=== PATIENT | female | born 1985 | race Caucasian/White ===

== ENCOUNTER 2016-11-07 08:57 | Outpatient (CLI) | payer OTHER ==
[~2016-11-07 08:57] MED LIST: IBUPROFEN200 M1 PO; MELOXICAM7.5 MG PO; OMEPRAZOLE20 MG; ONDANSETRON ODT4 MG PO; PERCOCET1 TA4 PO
--- NOTE | 2016-11-07 11:34 | DIAGNOSTIC IMAGING REPORT ---
PROCEDURE: MR LOWER EXT JOINT WO CONT-LT INDICATION: LT KNEE MASS, POSS LIPOMA OR BURSA, the patient complains of posterior knee pain and swelling following activity. TECHNIQUE: PD axial, T1 and PD fat sat coronal, PD and PD fat sat sagittal, and sagittal oblique STIR sequence through the ACL. COMPARISON: Plain films 10/25/2016 FINDINGS: Menisci: Intrinsic increased signal within the posterior horn of the medial meniscus which appears intact. Intrinsic increased signal in the body of the lateral meniscus without tear. No parameniscal cysts. Ligaments: Anterior and posterior cruciate ligaments are intact. Medial and lateral collateral ligament complexes including posterolateral corner structures are normal. Extensor mechanism: Normal patellar position. Intact retinacular fibers, distal quadriceps, and patellar tendons. Osseous structures and articular surfaces: Normal joint alignment. Mild diffuse uniform cartilage thinning in the medial and lateral compartments. Slight chondral irregularity in the medial and lateral patellar facet this. No full-thickness cartilage defect. Normal marrow signal. Fluid, soft tissues, and joint space: Physiologic amount of joint fluid present. There is a trace amount of unencapsulated fluid in the popliteal fossa at the expected location of a Newman's cyst. There is mild increased signal within and surrounding the proximal tendon of the gastrocnemius muscle. Semimembranosus tendon is intact with normal signal. In the region of the biceps femoris tendon on the lateral knee, there is no evidence of cyst or suspicious solid mass. No significant tendinopathy. The musculature and subcutaneous tissues normal in signal. Neurovascular bundle is unremarkable. IMPRESSION: 1. Trace fluid in the popliteal fossa may indicate a decompressed Newman's cyst. 2. Tendinopathy/strain of the medial head of the gastrocnemius muscle without full-thickness tear. 3. Mild degenerative intrinsic signal within the medial and lateral menisci. No tear. 4. Mild chondromalacia of the patella. 5. No evidence of lateral joint bursal fluid collection or mass.
== END 2016-11-07 23:00 ==
LOC: MRI SRH 08:57
DX: S86.812A Strain of other muscle(s) and tendon(s) at lower leg level, left leg, initial encounter (principal); M22.42 Chondromalacia patellae, left knee

== ENCOUNTER 2016-11-25 07:31 | Emergency (ER) | payer OTHER ==
--- NOTE | 2016-11-25 09:02 | ED ORDER SUMMARY ---
..... Patient: ALFREDO URBANO OrderSheet [facility] VisitID: [id number] [place] [address] 31y, F Registration Date/Time: 11/25/2016 ORDER SHEET Weight: 80.2 kg (stated) Allergies: No Known Drug Allergy GENERAL ORDERS: UA-Culture if indicated Urgent (08:11/25/2016 Yisel Asencio) (Ack 8:51 Franky) (8:54 Akiko R.N.) Urine Urgent (:11/25/2016 Yisel Asencio) (Ack 8:51 Franky) (8:54 Akiko R.N.) MEDICATION ORDERS: IV FLUIDS: ORDER SHEET NOTES: [Electronically signed by Jessenia Amezcua R.N. (09:11/25/2016)] [Electronically signed by Isaias London Dr. (08:43 12/03/2016)] [Electronically locked/signed by Jessenia Amezcua R.N. (:11/25/2016)]
--- NOTE | 2016-11-25 09:02 | ED NURSING NOTES ---
Clinical Report - Nurses [facility] [address] [place] [address] 11/25/2016 7:32 [id number] Triage time 08:07. Acuity: LEVEL 4. Chief Complaint: FATIGUE, NASAL CONGESTION, COUGH and JOINT PAIN ("burning" eyes, nose, can't sleep). Alert. No acute distress. BILL COMA SCORE: Marshall Coma Scale: 15- eyes open spontaneously (4); best verbal response- oriented x 4 (5); best motor response- obeys commands (6). --08:14 Jessenia Amezcua R.N. 08:07 11/25/16. BP: 139/95. HR: 81. RR: 18. O2 saturation: 99% on room air. Temp: 98.1 F (oral). Pain level now: 11/18. --08:14 Jessenia Amezcua R.N. Weight: 80.2 kg stated. Height/Length: 61 inches Per Patient. BMI: 33.4. --08:10 Jessenia Amezcua R.N. Medications Alb inhaler. --08:08 Jessenia Amezcua R.N. Naproxen Oral. --08:08 Jessenia Amezcua R.N. Allergies No Known Drug Allergy. --08:08 Jessenia Amezcua R.N. History Arrived by private vehicle. Historian: patient. Unaccompanied. Primary physician (Tatyana). Onset. (about 5 days). She has had a cough. PAST MEDICAL HX: Last normal menstrual period- November 2016. SOCIAL HX: Heavy tobacco smoker- less than 1 pack per day. Occasional alcohol use. No drug use. FALL RISK ASSESSMENT: Fall risk assessment completed. No fall risk identified. FUNCTIONAL ASSESSMENT: Functional assessment: no impairments noted. LEARNING NEEDS ASSESSMENT: The learning needs assessment revealed no barriers. --08:14 Jessenia Amezcua R.N. PROBLEMS: Lumbar Strain. Acute Otalgia. Leukocytosis. Colitis. Nausea. Gastroesophageal Reflux Disease. Fractured Metatarsal. Muscle Strain, Lower Extremity. Myofascial Strain. Laryngitis. Pharyngitis. Abdominal Pain. Dyspnea. Bronchospasm. Dental Caries. Tetanus Status. Reflux of the kidneys. URI. Bronchitis. Nephrolithiasis. Immunizations. LNMP - Last Normal Menstrual Period. Lifestyle / Substance Problems. Palpitations. Sinus Tachycardia. Abnormal Test. --08:09 Jessenia Amezcua R.N. ADDITIONAL SURGERIES: Foot surgery [2015]. Kidney surgery. Tonsillectomy. --08:09 Jessenia Amezcua R.N. Assessment GENERAL / NEURO / PSYCH: Alert. Oriented X 4. Appears in no acute distress. Patient appears calm and cooperative. RESPIRATORY: Respirations not labored. SKIN: Skin is warm and dry. --08:14 Jessenia Amezcua R.N. Interventions ID band on patient. To treatment room. --08:14 Jessenia Amezcua R.N. PHYSICAL ASSESSMENT 08:16 11/25/16. Ambulatory to room. Patient gowned. GENERAL / NEURO / PSYCH: Alert. Oriented X 4. Appears in no acute distress. RESPIRATORY: Respirations not labored. SKIN: Skin is warm and dry. --08:16 Jessenia Amezcua R.N. NURSING PROGRESS NOTES 08:16 11/25/16. Patient gowned. Head of bed elevated. Call light placed in reach. Side rails up x 1. Bed placed in lowest position. Brakes of bed on. --08:16 Jessenia Amezcua R.N. 08:55b to BR and back. --08:55 Jessenia Amezcua R.N. 08:55 11/25/16. :patient confirmed. Clean catch urine collected; sample sent to lab. Specimen labeled in the presence of the patient. --08:55 Jessenia Amezcua R.N. 09:20. The patient is resting quietly. Overall patient status is the same- she states feels the same. RESPIRATORY: No respiratory distress. SKIN: Skin is warm and dry. --09:26 Jessenia Amezcua R.N. DISPOSITION / DISCHARGE Departure time: 919. Condition at departure: stable. No learning barriers present. Discharge instructions provided and reviewed with the patient. Reviewed medication(s). Prescription(s) given to the patient. Patient verbalized understanding. Written instructions provided in Faroese. The patient was discharged home and unaccompanied at time of discharge. She left the Emergency Department ambulatory and via private vehicle. Patient driving. FALL RISK ASSESSMENT: Fall risk assessment completed. No fall risk identified. --09:27 Jessenia Amezcua R.N. 09:20 11/25/16. BP: 134/82. HR: 79. RR: 18. O2 saturation: 98%. Pain level now: 12/19. --09:27 Jessenia Amezcua R.N. Locked/Released at 11/25/2016 9:27 by Jessenia Amezcua R.N.
--- NOTE | 2016-11-25 09:02 | ED ORDER SUMMARY ---
..... Patient: ALFREDO URBANO OrderSheet [facility] VisitID: [id number] [place] [address] 31y, F Registration Date/Time: 11/25/2016 ORDER SHEET Weight: 80.2 kg (stated) Allergies: No Known Drug Allergy GENERAL ORDERS: UA-Culture if indicated Urgent (08:11/25/2016 Yisel Asencio) (Ack 8:51 Franky) (8:54 Akiko R.N.) Urine Urgent (:11/25/2016 Yisel Asencio) (Ack 8:51 Franky) (8:54 Akiko R.N.) MEDICATION ORDERS: IV FLUIDS: ORDER SHEET NOTES: [Electronically signed by Jessenia Amezcua R.N. (09:11/25/2016)] [Electronically signed by Isaias London Dr. (08:43 12/03/2016)] [Electronically locked/signed by Jessenia Amezcua R.N. (:11/25/2016)]
--- NOTE | 2016-11-25 09:02 | ED CLINICAL REPORT ---
Clinical Report - Physicians/Mid Levels [facility] [address] [place] [address] 11/25/2016 7:32 Patient: ALFREDO URBANO Time Seen: 0815. Arrived- By private vehicle. Historian- patient. HISTORY OF PRESENT ILLNESS Chief Complaint: MUSCLE ACHES. This started past several days and is still present (staying the same). It was abrupt in onset and has been constant and waxing/waning but is not gone now. The illness is described as moderate. The patient has had sputum production, a cough, nasal congestion, fever and chills. She has had muscle aches and a nasal discharge. No sore throat. Additional history - No known contact with a sick individual. No recent travel. Similar symptoms previously: None. Recent medical care: Not recently seen/assessed. REVIEW OF SYSTEMS No skin rash. All systems otherwise negative, except as recorded above. PAST HISTORY See nurses notes. Medications: Naproxen Oral. Alb inhaler. Allergies: No Known Drug Allergy. SOCIAL HISTORY Smoker- current status unknown. Alcohol use. No drug use. No recent travel. Is a local resident. ADDITIONAL NOTES The nursing notes have been reviewed. PHYSICAL EXAM Vital Signs: 11/25/2016 08:07 BP: 139/95. HR: 81. RR: 18. O2 saturation: 99%. Temp: 98.1 F. Pain level now: 3/10. Oxygen saturation normal. Appearance: Alert. No acute distress. Head: Tenderness present to percussion/palpation of the sinuses: moderate right and left ethmoid tenderness. Eyes: Pupils equal, round and reactive to light. Eyes normal inspection. No conjunctival findings. ENT: Ears normal. Nose normal. Pharynx normal. Uvula midline. No peritonsillar mass, trismus or trouble handling secretions. The mucous membranes are not dry. Neck: Normal inspection. Neck supple. No meningeal signs. CVS: Normal heart rate and rhythm. Heart sounds normal. Pulses normal. Respiratory: No respiratory distress. Breath sounds normal. No rales, rhonchi, wheezes or stridor. Abdomen: Soft and nontender. No organomegaly. Skin: Skin warm and dry. Normal skin color. No rash. Normal skin turgor. Extremities: Extremities exhibit normal ROM. No lower extremity edema. Neuro: Disoriented. Motor deficit noted. LABS, X-RAYS, AND EKG Laboratory Tests: UA-Culture if indicated: (CINDY: 11/25/2016 08:45) ( [facility] 11/25/2016 09:35) Final results Test Result Flag Units (Reference) URINE COLOR YELLOW URINE APPEARANCE SL CLOUDY URINE GLUCOSE NEGATIVE (NEGATIVE) URINE BILIRUBIN NEGATIVE (NEGATIVE) URINE KETONE NEGATIVE (NEGATIVE) URINE SPECIFIC GRAVITY >= 1.030 (1.010-1.030) URINE PH 6.5 (5.0-8.0) URINE PROTEIN TRACE (NEGATIVE) URINE UROBILINOGEN 1.0 EU/dL (0.2-1.0) URINE NITRITE NEGATIVE (NEGATIVE) URINE BLOOD NEGATIVE (NEGATIVE) URINE LEUK ESTERASE NEGATIVE (NEGATIVE) URINE RBC NONE SEEN rbc/hpf (0-1) URINE WBC 3-5 wbc/hpf (0-1) URINE EPITHELIAL CELLS >15 EPI/hpf (0-5) URINE BACTERIA MODERATE (2+ TO 3+) (NONE SEEN) 2+ URINE COMMENT CULTURE INDICATED EPITHELIAL CONTAMINATION. NO CULTURE SETUP.Please call laboratory if culture wanted.URINE CULTURES ARE SET-UP BASED ON THE FOLLOWING CRITERIA:POSITIVE NITRITEPOSITIVE LEUKOCYTE ESTERASEGREATER THAN 10 WHITE BLOOD CELLSMODERATE (2+) OR GREATER BACTERIA Urine: (CINDY: 11/25/2016 08:45) ( [facility] 11/25/2016 09:09) Final results Test Result Flag Units (Reference) URINE NEGATIVE . PROGRESS AND PROCEDURES Course of Care: The patient is a pleasant 31-year-old female with no pertinent past medical history presenting for evaluation of generalized fatigue and what he experienced at this time differential diagnosis includes urinary tract infection, or sinusitis/viral type infection. Because the patient's symptoms have been ongoing for almost a week, and patient is having ethmoid sinus tenderness, Feel the benefits of antibiotic therapy outweigh the risks at this time. Urinalysis will be ordered. Patient is agreeable to the treatment and plan. Offers of pain medication at the provided however patient is currently declining at this time are a result of a urinary tract infection. Feel the abnormal findings on UA her contamination. Patient will be treated with antibiotics for the sinus infection. I discussion with patient in regards to the normal course of treating sinus infections however because the time course, patient would likely benefit from a course of antibiotics. No other findings noted on patient's examination. No evidence of meningitis. Do not feel further workup here in emergency department as needed. Lungs are clear to examination do not feel patient benefit from chest x-ray. Discussed the patient workup, diagnosis, home care, follow-up, and return precautions. All questions have been answered. The patient expressed understanding of these instructions and was agreeable to them. Prior to patient's departure from the emergency department she was reevaluated and found resting in bed in no acute distress. Vital signs are remaining unremarkable. Patient is a good outpatient candidate. Disposition: Discharged. Condition: good. CLINICAL IMPRESSION 11/25/2016 08:07 BP: 139/95. HR: 81. RR: 18. O2 saturation: 99%. Temp: 98.1 F. Pain level now: 3/10. Hypertensive. Oxygen saturation normal. Ethmoidal sinusitis (acute). Essential hypertension. INSTRUCTIONS Warnings: GENERAL WARNINGS: Return or contact your physician immediately if your condition worsens or changes unexpectedly, if not improving as expected, or if other problems arise. Specifically return if pain, vomiting, bleeding, breathing difficulty or fever. Your Current Medications: CONTINUE TAKING THE FOLLOWING MEDICATIONS: Alb inhaler*. Naproxen Oral. Prescription Medications: Azithromycin Z-Rafi: Take according to package instructions. No refills. (substitution allowed) Hydroxyzine 50 mg: take 1 orally every 8 hours. Dispense thirty (30). No refill. (PRN congestion or sinus pressure) OTC Medications: Claritin 10 mg (available over the counter): take 1 tablet orally every 12 hours as needed. (PRN congestion or sinus pressure) Follow-up: Return to the emergency department as needed. Follow up with your doctor in three days. Reason for referral: recheck today's concerns. Summary of care provided to patient via paper. Screening today revealed the patient's blood pressure to be in the hypertensive range. The patient should follow up with a primary care provider for blood pressure management. Understanding of the discharge instructions not verbalized by patient. (Electronically signed by Isaias London Dr. 12/03/2016 8:43)
--- NOTE | 2016-12-03 08:43 | ED MED RECONCILIATION SUMMARY ---
Patient: ALFREDO URBANO Medication Reconciliation Report [facility] VisitID: [id number] [place] [address] 31y, F Registration Date/Time: 11/25/2016 Weight: 80.2 kg Height/Length: 61 in. BMI: 33.4 ALLERGIES: No Known Drug Allergy The patient's Home Medications are listed below: CONTINUE TAKING THE FOLLOWING MEDICATIONS: Alb inhaler Naproxen Oral The source(s) of the original Home Medication information: Not obtained. The following Medications were given to the patient in the Emergency Department: None. The following Medications were prescribed to the patient: Azithromycin Z-Rafi: Take according to package instructions. No refills.(substitution allowed) -- Isaias London Dr. Claritin 10 mg (available over the counter): take 1 tablet orally every 12 hours as needed.(PRN congestion or sinus pressure) -- Isaias London Dr. Hydroxyzine 50 mg: take 1 orally every 8 hours. Dispense thirty (30). No refill.(PRN congestion or sinus pressure) -- Isaias London Dr.
--- NOTE | 2016-12-03 08:43 | ED MED RECONCILIATION SUMMARY ---
Patient: ALFREDO URBANO Medication Reconciliation Report [facility] VisitID: [id number] [place] [address] 31y, F Registration Date/Time: 11/25/2016 Weight: 80.2 kg Height/Length: 61 in. BMI: 33.4 ALLERGIES: No Known Drug Allergy The patient's Home Medications are listed below: CONTINUE TAKING THE FOLLOWING MEDICATIONS: Alb inhaler Naproxen Oral The source(s) of the original Home Medication information: Not obtained. The following Medications were given to the patient in the Emergency Department: None. The following Medications were prescribed to the patient: Azithromycin Z-Rafi: Take according to package instructions. No refills.(substitution allowed) -- Isaias London Dr. Claritin 10 mg (available over the counter): take 1 tablet orally every 12 hours as needed.(PRN congestion or sinus pressure) -- Isaias London Dr. Hydroxyzine 50 mg: take 1 orally every 8 hours. Dispense thirty (30). No refill.(PRN congestion or sinus pressure) -- Isaias London Dr.
--- NOTE | 2016-12-03 08:43 | ED DISCHARGE INSTRUCTIONS ---
Patient: ALFREDO URBANO General Instructions [facility] VisitID: [id number] [place] [address] 31y, F Registration Date/Time: 11/25/2016 11/25/2016 08:07 BP: 139/95. HR: 81. RR: 18. O2 saturation: 99%. Temp: 98.1 F. Pain level now: 11/18. Hypertensive. Oxygen saturation normal. Ethmoidal sinusitis (acute). Essential hypertension. INSTRUCTIONS Warnings: GENERAL WARNINGS: Return or contact your physician immediately if your condition worsens or changes unexpectedly, if not improving as expected, or if other problems arise. Specifically return if pain, vomiting, bleeding, breathing difficulty or fever. Your Current Medications: CONTINUE TAKING THE FOLLOWING MEDICATIONS: Alb inhaler*. Naproxen Oral. Prescription Medications: Azithromycin Z-Rafi: Take according to package instructions. No refills. (substitution allowed) Hydroxyzine 50 mg: take 1 orally every 8 hours. Dispense thirty (30). No refill. (PRN congestion or sinus pressure) OTC Medications: Claritin 10 mg (available over the counter): take 1 tablet orally every 12 hours as needed. (PRN congestion or sinus pressure) Follow-up: Return to the emergency department as needed. Follow up with your doctor in three days. Reason for referral: recheck today's concerns. Summary of care provided to patient via paper. Screening today revealed the patient's blood pressure to be in the hypertensive range. The patient should follow up with a primary care provider for blood pressure management. Understanding of the discharge instructions not verbalized by patient. ADDITIONAL INFORMATION Sinusitis [Abx Tx] The sinuses are air-filled spaces within the bones of the face. They connect to the inside of the nose. Sinusitis is an inflammation of the tissue lining the sinus cavity. Sinus inflammation can occur during a cold or hay-fever (allergies to pollens and other particles in the air) and cause symptoms of sinus congestion and fullness. A sinus infection causes fever, headache and facial pain. There is usually green or yellow drainage from the nose or into the back of the throat (post-nasal drip). Antibiotics are prescribed to treat this condition. Home Care: Drink plenty of water, hot tea, and other liquids to stay well hydrated. This thins the mucus and promotes sinus drainage. Apply heat to the painful areas of the face. Use a towel soaked in hot water. Or, business transformation consultant the shower and direct the hot spray onto your face. This is a good way to inhale warm water vapor and get heat on your face at the same time. (Cover your mouth and nose with your hands so you can still breathe as you do this.) Use a vaporizer with products such as [employer] VapoRub (contains menthol) at night. Suck on peppermint, menthol or eucalyptus hard candies during the day. An expectorant containing guaifenesin (such as Robitussin), helps to thin the mucus and promote drainage from the sinuses. Clse-ltq-gnguyes decongestants may be used unless a similar medicine was prescribed. Nasal sprays work the fastest. Use one that contains phenylephrine (Joaquín-synephrine, Sinex and others) or oxymetazoline (Afrin). First blow the nose gently to remove mucus, then apply the drops. Do not use these medicines more often than directed on the label or for more than three days or symptoms may worsen. You may also use tablets containing pseudoephedrine (Sudafed). Many sinus remedies combine ingredients, which may increase side effects. Read the labels or ask the pharmacist for help. NOTE: Persons with high blood pressure should not use decongestants. They can raise blood pressure. Antihistamines are useful if allergies are a cause of your sinusitis. The mildest one is chlorpheniramine (available without a prescription). The dose for adults is 8-12mg three times a day. [NOTE: Do not use chlorpheniramine if you have glaucoma or if you are a man with trouble urinating due to an enlarged prostate.] Claritin (loratidine) is an antihistamine that causes less drowsiness and is a good alternative for daytime use. Do not use nasal rinses or irrigation during an acute sinus infection, unless advised by your doctor. Rinsing may spread the infection to other sinuses. You may use acetaminophen (Tylenol) or ibuprofen (Motrin, Advil) to control pain, unless another pain medicine was prescribed. [ NOTE: If you have chronic liver or kidney disease or ever had a stomach ulcer, talk with your doctor before using these medicines.] (Aspirin should never be used in anyone under 18 years of age who is ill with a fever. It may cause severe liver damage.) Finish the full course, even if you are feeling better after a few days. Follow Up with your doctor or this facility in one week or as instructed by our staff if not improving. Get Prompt Medical Attention if any of the following occur: Facial pain or headache becomes more severe Stiff neck Unusual drowsiness or confusion, or not acting like your normal self Swelling of the forehead or eyelids Vision problems including blurred or double vision Fever of 100.4F (38C) or higher, or as directed by your healthcare provider Seizure High Blood Pressure -- To Be Confirmed [No Tx] Your blood pressure was higher today than normal. Sometimes anxiety or pain can cause a temporary rise in blood pressure that later returns to normal. If your blood pressure is high on one measurement, this does not mean that you have hypertension (a chronic illness). However, you must have your blood pressure measured again within the next few days to find out if its still high. A normal blood pressure is 120/80 or less. The first (top) number is the "systolic" pressure. The second (bottom) number is the "diastolic" pressure. Hypertension exists when either the top number is 140 or higher, OR the bottom number is 90 or higher on repeated measurements. Blood pressure in the range of 120-140 (systolic) or 80-89 (diastolic) is considered "pre-hypertension". This means your are at risk for getting hypertension. You should have regular blood pressure checks to be sure your blood pressure is not rising. Home Care: Measure your blood pressure on 3 different days and write down the results. This can be done at your doctor's office or this facility. Some pharmacies and grocery stores offer automated blood pressure machines for your use. Follow Up: If your blood pressure is "high" (over 120/80) on 2 out of 3 days, you will need to follow up with your doctor for further evaluation and treatment. DO NOT PUT THIS OFF! Untreated high blood pressure increases the risk for heart attack, also known as acute myocardial infarction, or AMI, and stroke. It is a treatable condition. Get Prompt Medical Attention if any of the following occur: Chest pain or shortness of breath Severe headache Throbbing or rushing sound in the ears Nosebleed Sudden severe abdominal pain Extreme drowsiness, confusion or fainting Dizziness or vertigo (dizziness with spinning sensation) Weakness of an arm or leg or one side of the face Difficulty with speech or vision Azithromycin Oral tablet What is this medicine? AZITHROMYCIN (mony burns) is a macrolide antibiotic. It is used to treat or prevent certain kinds of bacterial infections. It will not work for colds, flu, or other viral infections. How should I use this medicine? Take this medicine by mouth with a full glass of water. Follow the directions on the prescription label. The tablets can be taken with food or on an empty stomach. If the medicine upsets your stomach, take it with food. Take your medicine at regular intervals. Do not take your medicine more often than directed. Take all of your medicine as directed even if you think your are better. Do not skip doses or stop your medicine early. Talk to your commercial front load operator regarding the use of this medicine in children. Special care may be needed. What side effects may I notice from receiving this medicine? Side effects that you should report to your doctor or health home care coordinator as soon as possible: allergic reactions like skin rash, itching or hives, swelling of the face, lips, or tongue confusion, nightmares or hallucinations dark urine difficulty breathing hearing loss irregular heartbeat or chest pain pain or difficulty passing urine redness, blistering, peeling or loosening of the skin, including inside the mouth white patches or sores in the mouth yellowing of the eyes or skin Side effects that usually do not require medical attention (report to your doctor or health home care coordinator if they continue or are bothersome): diarrhea dizziness, drowsiness headache stomach upset or vomiting tooth discoloration vaginal irritation What may interact with this medicine? Do not take this medicine with any of the following medications: lincomycin This medicine may also interact with the following medications: amiodarone antacids cyclosporine digoxin magnesium nelfinavir phenytoin warfarin What if I miss a dose? If you miss a dose, take it as soon as you can. If it is almost time for your next dose, take only that dose. Do not take double or extra doses. Where should I keep my medicine? Keep out of the reach of children. Store at room temperature between 15 and 30 degrees C (59 and 86 degrees F). Throw away any unused medicine after the expiration date. What should I tell my health care provider before I take this medicine? They need to know if you have any of these conditions: kidney disease liver disease irregular heartbeat or heart disease an unusual or allergic reaction to azithromycin, erythromycin, other macrolide antibiotics, foods, dyes, or preservatives or trying to get breast-feeding What should I watch for while using this medicine? Tell your doctor or health home care coordinator if your symptoms do not improve. Do not treat diarrhea with over the counter products. Contact your doctor if you have diarrhea that lasts more than 2 days or if it is severe and watery. This medicine can make you more sensitive to the sun. Keep out of the sun. If you cannot avoid being in the sun, wear protective clothing and use sunscreen. Do not use sun lamps or tanning beds/booths. Hydroxyzine Pamoate Oral capsule What is this medicine? HYDROXYZINE (amarilis DROX i zeen) is an antihistamine. This medicine is used to treat allergy symptoms. It is also used to treat anxiety and tension. This medicine can be used with other medicines to induce sleep before surgery. How should I use this medicine? Take this medicine by mouth with a full glass of water. Follow the directions on the prescription label. You may take this medicine with food or on an empty stomach. Take your medicine at regular intervals. Do not take your medicine more often than directed. Talk to your commercial front load operator regarding the use of this medicine in children. Special care may be needed. While this drug may be prescribed for children as young as 6 years of age for selected conditions, precautions do apply. Patients over 65 years old may have a stronger reaction and need a smaller dose. What side effects may I notice from receiving this medicine? Side effects that you should report to your doctor or health home care coordinator as soon as possible: fast or irregular heartbeat difficulty passing urine seizures slurred speech or confusion tremor Side effects that usually do not require medical attention (report to your doctor or health home care coordinator if they continue or are bothersome): constipation drowsiness fatigue headache stomach upset What may interact with this medicine? alcohol barbiturate medicines for sleep or seizures medicines for colds, allergies medicines for depression, anxiety, or emotional disturbances medicines for pain medicines for sleep muscle relaxants What if I miss a dose? If you miss a dose, take it as soon as you can. If it is almost time for your next dose, take only that dose. Do not take double or extra doses. Where should I keep my medicine? Keep out of the reach of children. Store at room temperature between 15 and 30 degrees C (59 and 86 degrees F). Keep container tightly closed. Throw away any unused medicine after the expiration date. What should I tell my health care provider before I take this medicine? They need to know if you have any of these conditions: any chronic illness difficulty passing urine glaucoma heart disease kidney disease liver disease lung disease an unusual or allergic reaction to hydroxyzine, cetirizine, other medicines, foods, dyes, or preservatives or trying to get breast-feeding What should I watch for while using this medicine? Tell your doctor or health home care coordinator if your symptoms do not improve. You may get drowsy or dizzy. Do not drive, use machinery, or do anything that needs mental alertness until you know how this medicine affects you. Do not stand or sit up quickly, especially if you are an older patient. This reduces the risk of dizzy or fainting spells. Alcohol may interfere with the effect of this medicine. Avoid alcoholic drinks. Your mouth may get dry. Chewing sugarless gum or sucking hard candy, and drinking plenty of water may help. Contact your doctor if the problem does not go away or is severe. This medicine may cause dry eyes and blurred vision. If you wear contact lenses you may feel some discomfort. Lubricating drops may help. See your eye doctor if the problem does not go away or is severe. If you are receiving skin tests for allergies, tell your doctor you are using this medicine. You have been given the following additional information: Sinusitis, Abx Tx Hypertension, To Be Confirmed Azithromycin Oral tablet Hydroxyzine Pamoate Oral capsule (Electronically signed by Isaias London Dr. 12/03/2016 8:43)
--- NOTE | 2016-12-03 08:43 | ED MAR SUMMARY ---
..... Medication Administration Record [facility] [address] [place] [address] Patient: ALFREDO URBANO Visit ID: [id number] 31y, F Weight: 80.2 kg Height/Length: 61 in BMI: 33.4 ALLERGIES: No Known Drug Allergy
--- NOTE | 2016-12-03 08:43 | ED MAR SUMMARY ---
..... Medication Administration Record [facility] [address] [place] [address] Patient: ALFREDO URBANO Visit ID: [id number] 31y, F Weight: 80.2 kg Height/Length: 61 in BMI: 33.4 ALLERGIES: No Known Drug Allergy
== END 2016-11-25 09:20 | disposition home or self-care (01) ==
LOC: ED SRH 07:31
DX: J01.20 Acute ethmoidal sinusitis, unspecified (principal); I10 Essential (primary) hypertension; K21.9 Gastro-esophageal reflux disease without esophagitis
CPT/HCPCS: 90004; 93070

== ENCOUNTER 2017-02-18 08:42 | Emergency (ER) | payer OTHER ==
--- NOTE | 2017-02-18 09:29 | DIAGNOSTIC IMAGING REPORT ---
PROCEDURE: XR FOOT 3 VIEWS - LEFT INDICATION: Left foot and toe pain. TECHNIQUE: Three views. COMPARISON: Compare radiographs of the left foot on 01/16/2015. FINDINGS: Status post open reduction internal fixation of right fifth metatarsal shaft fracture transfixed with a solitary screw. The rest of the osseous structures and joint spaces are normal. IMPRESSION: 1. Status post ORIF of right fifth metatarsal shaft fracture. 2. Otherwise negative right foot.
--- NOTE | 2017-02-18 09:45 | ED NURSING NOTES ---
Clinical Report - Nurses [facility] [address] [place] [address] 02/18/2017 8:42 Patient: ALFREDO URBANO TRIAGE Triage time 08:58 Burak 10 2016. Acuity: LEVEL 4. Chief Complaint: INJURY TO LEFT FOOT. CARLOS COMA SCORE: Carlos Coma Scale: 15- eyes open spontaneously (4); best verbal response- oriented x 4 (5); best motor response- obeys commands (6). --09:02 Sohan Walden R.N. 08:57 02/18/17. Pain level now 04/20. --09:02 Sohan Walden R.N. 09:04 02/18/17. BP: 134/86. HR: 95. RR: 18. O2 saturation: 98%. Temp: 98.3 F. Pain level now 03/20. --09:04 Sohan Walden R.N. Weight: 78 kg stated. Height/Length: 61 inches Per Patient. BMI: 32.5. --09:02 Sohan Walden R.N. Medications Alb inhaler. Naproxen Oral. --09:00 Sohan Walden R.N. Allergies No Known Drug Allergy. --09:00 Sohan Walden R.N. History Arrived by private vehicle. This occurred (1 weeks). ( History of surgery in that foot there is a screw in the toe next to the pain that she is having. Is having swelling on the bottom of the foot and the toe next tot the small toes.). She has had trouble walking. The patient has been limping when trying to walk. ( Throbbing pain). No numbness, tingling, weakness, neck pain or back pain. Treatment DIRECTOR OF RECRUITMENT: (naproxen). PAST MEDICAL HX: Lung disease. No history of diabetes mellitus, hypertension or heart disease. Tetanus status: up-to-date. Immunizations: up-to-date. SOCIAL HX: Current every day heavy tobacco smoker (cigarette)- less than 1 pack per day. Occasional alcohol use. No drug use. SELF HARM ASSESSMENT: A self harm assessment was performed. The patient answered "no" to the question "Have you recently felt down, depressed, or hopeless?" and "Do you have thoughts of harming or killing yourself?". FALL RISK ASSESSMENT: Fall risk assessment completed. No fall risk identified. NUTRITIONAL RISK ASSESSMENT: The nutritional risk assessment revealed no deficiencies. FUNCTIONAL ASSESSMENT: Functional assessment: no impairments noted. LEARNING NEEDS ASSESSMENT: The learning needs assessment revealed no barriers. ABUSE ASSESSMENT: Abuse assessment: (yes) The patient was asked "Do you feel safe in your home?". SKIN INTEGRITY ASSESSMENT: Skin integrity risk assessment completed. No skin integrity risk identified. --09:02 Sohan Walden R.N. PROBLEMS: Hypertension. Sinusitis. Lumbar Strain. Acute Otalgia. Leukocytosis. Colitis. Nausea. Gastroesophageal Reflux Disease. Fractured Metatarsal. Muscle Strain, Lower Extremity. Myofascial Strain. Laryngitis. Pharyngitis. Abdominal Pain. Dyspnea. Bronchospasm. Dental Caries. Tetanus Status. Reflux of the kidneys. URI. Bronchitis. Nephrolithiasis. Immunizations. LNMP - Last Normal Menstrual Period. Lifestyle / Substance Problems. Palpitations. Sinus Tachycardia. Abnormal Test. --09:01 Sohan Walden R.N. ADDITIONAL SURGERIES: Foot surgery [2015]. Kidney surgery. Tonsillectomy. --09:01 Sohan Walden R.N. Interventions ID band on patient. --09:02 Sohan Walden R.N. PHYSICAL ASSESSMENT Ambulatory to room. GENERAL / NEURO / PSYCH: Oriented X 4. Alert. Appears in no acute distress. EXTREMITIES: Capillary refill is less than 2 seconds in the extremities. Extremity pulses are within normal limits. Extremities exhibit normal ROM. Pain with weight bearing. Limping gait. Neuro-vascular status intact to the extremity. Left foot: tenderness of the fourth toe. SKIN: Skin intact. Skin is warm and dry. ( old scaring on skin). --09:05 Sohan Walden R.N. NURSING PROGRESS NOTES The initial plan of care for this patient includes an assessment with efforts to address patient positioning and appropriate ambient lighting; impairment of the musculoskeletal system. Cold pack applied. Extremity elevated. Reassurance given. Call light placed in reach. Side rails up x 1. Bed placed in lowest position. Brakes of bed on. --09:05 Sohan Walden R.N. 10:10. Ortho shoe applied to left foot by [employer]; distal pulses intact, sensation intact and motor function within normal limits. Patient fit with new crutches. Crutch training performed by [employer]; the patient demonstrated proper use. --10:32 Julia Valiente. DISPOSITION / DISCHARGE Departure time: :Feb 18 2017. Condition at departure: improved. No learning barriers present. Discharge instructions provided and reviewed with the patient. Reviewed warnings. Reviewed medication(s). Treatments reviewed. Reviewed referrals. Work note given. Patient verbalized understanding. Written instructions provided in Finnish. The patient was discharged home. She left the Emergency Department on crutches and via private vehicle. Patient driving. --09:55 Sohan Walden R.N. 09:54 02/18/17. BP: 133/82. HR: 86. RR: 18. O2 saturation: 98%. Temp: 98.2 F. Pain level now 02/18. --09:55 Sohan Walden R.N. Locked/Released at 02/18/2017 17:08 by Sohan Walden R.N.
--- NOTE | 2017-02-18 09:45 | ED CLINICAL REPORT ---
Clinical Report - Physicians/Mid Levels [facility] [address] [place] [address] 02/18/2017 8:42 Patient: ALFREDO URBAON Time Seen: 09:05. Arrived- By private vehicle. Historian- patient. HISTORY OF PRESENT ILLNESS Chief Complaint: LOWER EXTREMITY PAIN. Severity is described as being moderate. The quality is noted to be "pain". No radiation. This started about 1 week ago and is still present. It was gradual in onset and has been waxing/waning. Modifying factors- worsened by walking. Relieved by remaining still. Symptoms located in the area of the left foot. The patient has not had redness. No swelling, bladder dysfunction, bowel dysfunction, sensory loss or motor loss. She has had difficulty walking (left foot pain). ( History of surgery in the left foot - "there is a screw in the toe next to the pain" that she is having. Is having swelling on the bottom of the foot and the toe next tot the small toes. She has had trouble walking. The patient has been limping when trying to walk. Throbbing pain. No numbness, tingling, weakness, neck pain or back pain.). Patient denies an injury. Similar symptoms previously: Recent medical care: Not recently seen/assessed. REVIEW OF SYSTEMS No cough, chest pain, difficulty breathing, fever or back pain. No headache, abdominal pain, vomiting, difficulty with urination or bloody stools. PAST HISTORY ( PCP: Dr Joe Podiatry: Dr Mayorga PROBLEMS: Hypertension. Sinusitis. Lumbar Strain. Acute Otalgia. Leukocytosis. Colitis. Nausea. Gastroesophageal Reflux Disease. Fractured Metatarsal. Muscle Strain, Lower Extremity. Myofascial Strain. Laryngitis. Pharyngitis. Abdominal Pain. Dyspnea. Bronchospasm. Dental Caries. Tetanus Status. Reflux of the kidneys. URI. Bronchitis. Nephrolithiasis. Lifestyle / Substance Problems. Palpitations. Sinus Tachycardia. SURGERIES: Foot surgery [2015]. Kidney surgery. Tonsillectomy). SOCIAL HISTORY Smoker- current status unknown. Occasional alcohol use. No drug use. Is a local resident. ADDITIONAL NOTES The nursing notes have been reviewed. PHYSICAL EXAM Vital Signs: 02/18/2017 09:04 BP: 134/86. HR: 95. RR: 18. O2 saturation: 98%. Temp: 98.3 F. Appearance: Alert. Oriented X3. No acute distress. Eyes: Pupils equal, round and reactive to light. Eyes normal inspection. No pale conjunctivae or scleral icterus. ENT: Pharynx normal. Neck: Normal inspection. Neck supple. CVS: Normal heart rate and rhythm. Heart sounds normal. Respiratory: No respiratory distress. Breath sounds normal. Back: Normal inspection. Skin: Skin intact. Skin warm and dry. Normal skin color. Normal skin turgor. Extremities: Left foot: moderate tenderness of the plantar lateral aspect of the foot. No erythema, swelling, laceration, abrasion or ecchymosis. No puncture wound, foreign body or deformity. Lower extremities exhibit normal ROM. No lower extremity edema. Extremities otherwise negative. Neuro: Oriented X 3. No motor deficit. No sensory deficit. LABS, X-RAYS, AND EKG Lt Foot X-ray: No fracture. Normal alignment. Soft tissues normal. Joint spaces normal. No air in the soft tissue. (5th MT screw in good position- no signs of loosening). Views: AP, lateral and oblique. Technique: good. The X-rays were interpreted contemporaneously by me. Pulse Oximetry: 02/18/2017 09:04 O2 saturation: 98%. (FIO2 - room air). Interpretation: normal. PROGRESS AND PROCEDURES PROCEDURES (Crutches and post op shoe given by tech). Course of Care: No signs of infection or tenting of skin or skin break. Pt with chronic screw in place from fx about 2 years ago - has local radiation protection specialist (Mukesh) and local PCP (Tatyana). Patient/family counseled. Old ED records reviewed. Patient has had multiple ED visits. Disposition: Discharged. CLINICAL IMPRESSION Acute left foot pain (secondary to irritation from screw). INSTRUCTIONS Apply ice. Use crutches. Elevate affected areas above chest level. Wear stiff soled shoe until released. Do not work for three days. Rest. Do not smoke. Seek medical help to quit smoking. Warnings: Further evaluation is necessary. It is very important to follow up with a physician. CONTROLLED SUBSTANCE WARNINGS. GENERAL WARNINGS: Return or contact your physician immediately if your condition worsens or changes unexpectedly, if not improving as expected, or if other problems arise. Your Current Medications: CONTINUE TAKING THE FOLLOWING MEDICATIONS: Alb inhaler*. Naproxen Oral. Prescription Medications: Hydrocodone/APAP 5mg / 325mg: take 1-2 orally every 6 hours as needed for pain. Dispense ten (10). No refill. OTC Medications: Acetaminophen (available over the counter): take according to label instructions. Follow-up with: Phu Mayorga DPM, Podiatry, , [facility], [address] [place] [address], [address] [address] Follow up in about two days. Follow-up with: Diego Joe MD, [facility], , [facility] [place] [address] Follow up in two days. (Electronically signed by Alfonzo Sainz DO 02/18/2017 10:29)
--- NOTE | 2017-02-18 09:45 | ED CLINICAL REPORT ---
Clinical Report - Physicians/Mid Levels [facility] [address] [place] [address] 02/18/2017 8:42 Patient: ALFREDO URBANO Time Seen: 09:05. Arrived- By private vehicle. Historian- patient. HISTORY OF PRESENT ILLNESS Chief Complaint: LOWER EXTREMITY PAIN. Severity is described as being moderate. The quality is noted to be "pain". No radiation. This started about 1 week ago and is still present. It was gradual in onset and has been waxing/waning. Modifying factors- worsened by walking. Relieved by remaining still. Symptoms located in the area of the left foot. The patient has not had redness. No swelling, bladder dysfunction, bowel dysfunction, sensory loss or motor loss. She has had difficulty walking (left foot pain). ( History of surgery in the left foot - "there is a screw in the toe next to the pain" that she is having. Is having swelling on the bottom of the foot and the toe next tot the small toes. She has had trouble walking. The patient has been limping when trying to walk. Throbbing pain. No numbness, tingling, weakness, neck pain or back pain.). Patient denies an injury. Similar symptoms previously: Recent medical care: Not recently seen/assessed. REVIEW OF SYSTEMS No cough, chest pain, difficulty breathing, fever or back pain. No headache, abdominal pain, vomiting, difficulty with urination or bloody stools. PAST HISTORY ( PCP: Dr Joe Podiatry: Dr Mayorga PROBLEMS: Hypertension. Sinusitis. Lumbar Strain. Acute Otalgia. Leukocytosis. Colitis. Nausea. Gastroesophageal Reflux Disease. Fractured Metatarsal. Muscle Strain, Lower Extremity. Myofascial Strain. Laryngitis. Pharyngitis. Abdominal Pain. Dyspnea. Bronchospasm. Dental Caries. Tetanus Status. Reflux of the kidneys. URI. Bronchitis. Nephrolithiasis. Lifestyle / Substance Problems. Palpitations. Sinus Tachycardia. SURGERIES: Foot surgery [2015]. Kidney surgery. Tonsillectomy). SOCIAL HISTORY Smoker- current status unknown. Occasional alcohol use. No drug use. Is a local resident. ADDITIONAL NOTES The nursing notes have been reviewed. PHYSICAL EXAM Vital Signs: 02/18/2017 09:04 BP: 134/86. HR: 95. RR: 18. O2 saturation: 98%. Temp: 98.3 F. Appearance: Alert. Oriented X3. No acute distress. Eyes: Pupils equal, round and reactive to light. Eyes normal inspection. No pale conjunctivae or scleral icterus. ENT: Pharynx normal. Neck: Normal inspection. Neck supple. CVS: Normal heart rate and rhythm. Heart sounds normal. Respiratory: No respiratory distress. Breath sounds normal. Back: Normal inspection. Skin: Skin intact. Skin warm and dry. Normal skin color. Normal skin turgor. Extremities: Left foot: moderate tenderness of the plantar lateral aspect of the foot. No erythema, swelling, laceration, abrasion or ecchymosis. No puncture wound, foreign body or deformity. Lower extremities exhibit normal ROM. No lower extremity edema. Extremities otherwise negative. Neuro: Oriented X 3. No motor deficit. No sensory deficit. LABS, X-RAYS, AND EKG Lt Foot X-ray: No fracture. Normal alignment. Soft tissues normal. Joint spaces normal. No air in the soft tissue. (5th MT screw in good position- no signs of loosening). Views: AP, lateral and oblique. Technique: good. The X-rays were interpreted contemporaneously by me. Pulse Oximetry: 02/18/2017 09:04 O2 saturation: 98%. (FIO2 - room air). Interpretation: normal. PROGRESS AND PROCEDURES PROCEDURES (Crutches and post op shoe given by tech). Course of Care: No signs of infection or tenting of skin or skin break. Pt with chronic screw in place from fx about 2 years ago - has local shellfish bed worker (Mukesh) and local PCP (Tatyana). Patient/family counseled. Old ED records reviewed. Patient has had multiple ED visits. Disposition: Discharged. CLINICAL IMPRESSION Acute left foot pain (secondary to irritation from screw). INSTRUCTIONS Apply ice. Use crutches. Elevate affected areas above chest level. Wear stiff soled shoe until released. Do not work for three days. Rest. Do not smoke. Seek medical help to quit smoking. Warnings: Further evaluation is necessary. It is very important to follow up with a physician. CONTROLLED SUBSTANCE WARNINGS. GENERAL WARNINGS: Return or contact your physician immediately if your condition worsens or changes unexpectedly, if not improving as expected, or if other problems arise. Your Current Medications: CONTINUE TAKING THE FOLLOWING MEDICATIONS: Alb inhaler*. Naproxen Oral. Prescription Medications: Hydrocodone/APAP 5mg / 325mg: take 1-2 orally every 6 hours as needed for pain. Dispense ten (10). No refill. OTC Medications: Acetaminophen (available over the counter): take according to label instructions. Follow-up with: Phu Mayorga DPM, Podiatry, , [facility], [address] [place] [address], [address] [address] Follow up in about two days. Follow-up with: Diego Joe MD, [facility], , [facility] [place] [address] Follow up in two days. (Electronically signed by Alfonzo Sainz DO 02/18/2017 10:29)
--- NOTE | 2017-02-18 09:46 | ED ORDER SUMMARY ---
..... Patient: ALFREDO URBANO OrderSheet [facility] VisitID: [id number] [address] [place] [address] 31y, F Registration Date/Time: 02/18/2017 ORDER SHEET Weight: 78.0 kg (stated) Allergies: No Known Drug Allergy GENERAL ORDERS: Foot 3V Left (prior surgery) Urgent (09:11 02/18/2017 [facility]) (Ack 9:13 Maria E) (9:28 Steven) Crutches (:43 02/18/2017 [facility]) (9:54 LWhalen R.N.) Post-op Shoe (:43 02/18/2017 [facility]) (9:54 LWhalen R.N.) MEDICATION ORDERS: IV FLUIDS: ORDER SHEET NOTES: [Electronically signed by Alfonzo Sainz DO (10:29 02/18/2017)] [Electronically signed by Sohan Walden R.N. (17:02/18/2017)] [Electronically locked/signed by Sohan Walden R.N. (17:02/18/2017)]
--- NOTE | 2017-02-18 09:46 | ED ORDER SUMMARY ---
..... Patient: ALFREDO URBANO OrderSheet [facility] VisitID: [id number] [address] [place] [address] 31y, F Registration Date/Time: 02/18/2017 ORDER SHEET Weight: 78.0 kg (stated) Allergies: No Known Drug Allergy GENERAL ORDERS: Foot 3V Left (prior surgery) Urgent (09:11 02/18/2017 [facility]) (Ack 9:13 Maria E) (9:28 Steven) Crutches (:43 02/18/2017 [facility]) (9:54 LWhalen R.N.) Post-op Shoe (:43 02/18/2017 [facility]) (9:54 LWhalen R.N.) MEDICATION ORDERS: IV FLUIDS: ORDER SHEET NOTES: [Electronically signed by Alfonzo Sainz DO (10:29 02/18/2017)] [Electronically signed by Sohan Walden R.N. (17:02/18/2017)] [Electronically locked/signed by Sohan Walden R.N. (17:02/18/2017)]
--- NOTE | 2017-02-18 17:08 | ED MED RECONCILIATION SUMMARY ---
Patient: ALFREDO URBANO Medication Reconciliation Report [facility] VisitID: [id number] [address] [place] [address] 31y, F Registration Date/Time: 02/18/2017 Weight: 78.0 kg Height/Length: 61 in. BMI: 32.5 ALLERGIES: No Known Drug Allergy The patient's Home Medications are listed below: CONTINUE TAKING THE FOLLOWING MEDICATIONS: Alb inhaler Naproxen Oral The source(s) of the original Home Medication information: Not obtained. The following Medications were given to the patient in the Emergency Department: None. The following Medications were prescribed to the patient: Acetaminophen (available over the counter): take according to label instructions. -- Alfonzo Sainz DO Hydrocodone/APAP 5mg / 325mg: take 1-2 orally every 6 hours as needed for pain. Dispense ten (10). No refill. -- Alfonzo Sainz DO
--- NOTE | 2017-02-18 17:08 | ED MAR SUMMARY ---
..... Medication Administration Record [facility] [address] [place] [address] Patient: ALFREDO URBANO Visit ID: [id number] 31y, F Weight: 78.0 kg Height/Length: 61 in BMI: 32.5 ALLERGIES: No Known Drug Allergy
--- NOTE | 2017-02-18 17:08 | ED MED RECONCILIATION SUMMARY ---
Patient: ALFREDO URBANO Medication Reconciliation Report [facility] VisitID: [id number] [address] [place] [address] 31y, F Registration Date/Time: 02/18/2017 Weight: 78.0 kg Height/Length: 61 in. BMI: 32.5 ALLERGIES: No Known Drug Allergy The patient's Home Medications are listed below: CONTINUE TAKING THE FOLLOWING MEDICATIONS: Alb inhaler Naproxen Oral The source(s) of the original Home Medication information: Not obtained. The following Medications were given to the patient in the Emergency Department: None. The following Medications were prescribed to the patient: Acetaminophen (available over the counter): take according to label instructions. -- Alfonzo Sainz DO Hydrocodone/APAP 5mg / 325mg: take 1-2 orally every 6 hours as needed for pain. Dispense ten (10). No refill. -- Alfonzo Sainz DO
--- NOTE | 2017-02-18 17:08 | ED DISCHARGE INSTRUCTIONS ---
Patient: ALFREDO URBANO General Instructions [facility] VisitID: [id number] [address] [place] [address] 31y, F Registration Date/Time: 02/18/2017 Acute left foot pain (secondary to irritation from screw). INSTRUCTIONS Apply ice. Use crutches. Elevate affected areas above chest level. Wear stiff soled shoe until released. Do not work for three days. Rest. Do not smoke. Seek medical help to quit smoking. Warnings: Further evaluation is necessary. It is very important to follow up with a physician. CONTROLLED SUBSTANCE WARNINGS. GENERAL WARNINGS: Return or contact your physician immediately if your condition worsens or changes unexpectedly, if not improving as expected, or if other problems arise. Your Current Medications: CONTINUE TAKING THE FOLLOWING MEDICATIONS: Alb inhaler*. Naproxen Oral. Prescription Medications: Hydrocodone/APAP 5mg / 325mg: take 1-2 orally every 6 hours as needed for pain. Dispense ten (10). No refill. OTC Medications: Acetaminophen (available over the counter): take according to label instructions. Follow-up with: Phu Mayorga DPM, Podiatry, , [facility], [address] [place] [address], [address], [place] [address] Follow up in about two days. Follow-up with: Diego Joe MD, [facility], , [facility] [place] [address] Follow up in two days. ADDITIONAL INFORMATION Crutch Walking Crutch Adjustment Make sure the crutches you use are adjusted to fit you. When you stand, there should be room to fit 2-3 fingers between the top of the crutch and your armpit. Your elbow should be slightly bent when holding the hand quality rn. Crutch Walking: Place the crutches forward 12" in front of and 6" to the side of your feet. Lean your weight forward as you push down on the handgrips. Your weight should be on your hands and yourstrong leg, not your armpits . Let your body swing through, landing on the strong leg. Advance the crutches forward again. The crutch and the injured leg should move together. Going Up Steps: ("Up with the good") With both crutches on the same step as your feet, push down on the handgrips. Balancing with very light pressure on the weak leg, let your hands support your weight as you raise your strong leg onto the next higher step. Transfer all your weight to your strong leg (still bent) as you move the crutches up to the next step alongside the strong leg. With your weight evenly balanced on the two crutches and your strong leg, straighten your strong knee as you raise the weak leg up to the next step. Going Down Steps: ("Down with the bad") With both crutches on the same step as your feet, push down on the handgrips. With your weight evenly balanced on the two crutches and your strong leg, bend your strong knee as you lower the weak leg down to the next step. Let your strong leg support you (still bent) as you move the crutches down alongside the weak leg. Transfer your weight to your hands, balancing with very light pressure on the weak leg as you lower your strong leg alongside your weak leg. How To Quit Smoking Smoking is one of the hardest habits to break. About half of all those who have ever smoked have been able to quit, and most of those (about 70%) who still smoke want to quit. Here are some of the best ways to stop smoking. Keep Trying: It takes most smokers about 8 tries before they are finally able to fully quit. So, the more often you try and fail, the better your chance of quitting the next time! So, don't give up! Go Cold [place]: Most ex-smokers quit cold turkey. Trying to cut back gradually doesn't seem to work as well, perhaps because it continues the smoking habit. Also, it is possible to fool yourself by inhaling more while smoking fewer cigarettes. This results in the same amount of nicotine in your body! Get Support: Support programs can make an important difference, especially for the heavy smoker. These groups offer lectures, methods to change your behavior and peer support. Call the free national Quitline for more information. 168-WOUY-FDO (239-915-6943). Low-cost or free programs are offered by many hospitals, local chapters of the [place] [employer] (365-111-4184) and the [place] [employer] (004-084-2197). Support at home is important too. Non-smokers can help by offering praise and encouragement. If the smoker fails to quit, encourage them to try again! Lgtv-Yuk-Itbklzf Medicines: For those who can't quit on their own, Nicotine Replacement Therapy (NRT) may make quitting much easier. Certain aids such as the nicotine patch, gum and lozenge are available without a prescription. However, it is best to use these under the guidance of your doctor. The skin patch provides a steady supply of nicotine to the body. Nicotine gum and lozenge gives temporary bursts of low levels of nicotine. Both methods take the edge off the craving for cigarettes. WARNING: If you feel symptoms of nicotine overdose, such as nausea, vomiting, dizziness, weakness, or fast heartbeat, stop using these and see your doctor. Prescription Medicines: After evaluating your smoking patterns and prior attempts at quitting, your doctor may offer a prescription medicine such as bupropion (Zyban, Wellbutrin), varenicline (Chantix, Champix), a niocotine inhaler or nasal spray. Each has its unique advantage and side effects which your doctor can review with you. Health Benefits Of Quitting: The benefits of quitting start right away and keep improving the longer you go without smokin minutes: blood pressure and pulse return to normal 8 hours: oxygen levels return to normal 2 days: ability to smell and taste begins to improve as damaged nerves start to regrow 2-3 weeks: circulation and lung function improves 1-9 months: decreased cough, congestion and shortness of breath; less tired 1 year: risk of heart attack decreases by half 5 years: risk of lung cancer decreases by half; risk of stroke becomes the same as a non-smoker For information about how to quit smoking, visit the following links: National Cancer [place] , Clearing the Air, Quit Smoking Today - an online booklet. http://www.smokefree.gov/pubs/clearing_the_air.pdf Smokefree.gov http://smokefree.gov/ QuitNet http://www.quitnet.com/ Hydrocodone Bitartrate, Acetaminophen Oral tablet What is this medicine? ACETAMINOPHEN; HYDROCODONE (a set a LINDA marvin fen; amarilis droe KOE done) is a pain reliever. It is used to treat mild to moderate pain. How should I use this medicine? Take this medicine by mouth. Swallow it with a full glass of water. Follow the directions on the prescription label. If the medicine upsets your stomach, take the medicine with food or milk. Do not take more than you are told to take. Talk to your wind tunnel mechanic regarding the use of this medicine in children. This medicine is not approved for use in children. What side effects may I notice from receiving this medicine? Side effects that you should report to your doctor or health complex care nurse practitioner as soon as possible: allergic reactions like skin rash, itching or hives, swelling of the face, lips, or tongue breathing problems confusion feeling faint or lightheaded, falls stomach pain yellowing of the eyes or skin Side effects that usually do not require medical attention (report to your doctor or health complex care nurse practitioner if they continue or are bothersome): nausea, vomiting stomach upset What may interact with this medicine? alcohol antihistamines isoniazid medicines for depression, anxiety, or psychotic disturbances medicines for sleep muscle relaxants naltrexone narcotic medicines (opiates) for pain phenobarbital ritonavir tramadol What if I miss a dose? If you miss a dose, take it as soon as you can. If it is almost time for your next dose, take only that dose. Do not take double or extra doses. Where should I keep my medicine? Keep out of the reach of children. This medicine can be abused. Keep your medicine in a safe place to protect it from theft. Do not share this medicine with anyone. Selling or giving away this medicine is dangerous and against the law. Store at room temperature between 15 and 30 degrees C (59 and 86 degrees F). Protect from light. Keep container tightly closed. Throw away any unused medicine after the expiration date. Discard unused medicine and used packaging carefully. Pets and children can be harmed if they find used or lost packages. What should I tell my health care provider before I take this medicine? They need to know if you have any of these conditions: brain tumor Crohn's disease, inflammatory bowel disease, or ulcerative colitis drink more than 3 alcohol-containing drinks per day drug abuse or addiction head injury heart or circulation problems kidney disease or problems going to the bathroom liver disease lung disease, asthma, or breathing problems an unusual or allergic reaction to acetaminophen, hydrocodone, other opioid analgesics, other medicines, foods, dyes, or preservatives or trying to get breast-feeding What should I watch for while using this medicine? Tell your doctor or health complex care nurse practitioner if your pain does not go away, if it gets worse, or if you have new or a different type of pain. You may develop tolerance to the medicine. Tolerance means that you will need a higher dose of the medicine for pain relief. Tolerance is normal and is expected if you take the medicine for a long time. Do not suddenly stop taking your medicine because you may develop a severe reaction. Your body becomes used to the medicine. This does NOT mean you are addicted. Addiction is a behavior related to getting and using a drug for a non-medical reason. If you have pain, you have a medical reason to take pain medicine. Your doctor will tell you how much medicine to take. If your doctor wants you to stop the medicine, the dose will be slowly lowered over time to avoid any side effects. You may get drowsy or dizzy when you first start taking the medicine or change doses. Do not drive, use machinery, or do anything that may be dangerous until you know how the medicine affects you. Stand or sit up slowly. There are different types of narcotic medicines (opiates) for pain. If you take more than one type at the same time, you may have more side effects. Give your health care provider a list of all medicines you use. Your doctor will tell you how much medicine to take. Do not take more medicine than directed. Call emergency for help if you have problems breathing. The medicine will cause constipation. Try to have a bowel movement at least every 2 to 3 days. If you do not have a bowel movement for 3 days, call your doctor or health complex care nurse practitioner. Too much acetaminophen can be very dangerous. Do not take Tylenol (acetaminophen) or medicines that contain acetaminophen with this medicine. Many non-prescription medicines contain acetaminophen. Always read the labels carefully. You have been given the following additional information: Crutch Walking Smoking Cessation Hydrocodone Bitartrate, Acetaminophen Oral tablet Do not work for three days. Rest. (Electronically signed by Alfonzo Sainz DO 02/18/2017 10:29)
--- NOTE | 2017-02-18 17:08 | ED MAR SUMMARY ---
..... Medication Administration Record [facility] [address] [place] [address] Patient: ALFREDO URBANO Visit ID: [id number] 31y, F Weight: 78.0 kg Height/Length: 61 in BMI: 32.5 ALLERGIES: No Known Drug Allergy
--- NOTE | 2017-02-18 17:08 | ED DISCHARGE INSTRUCTIONS ---
Patient: ALFREDO URBANO General Instructions [facility] VisitID: [id number] [address] [place] [address] 31y, F Registration Date/Time: 02/18/2017 Acute left foot pain (secondary to irritation from screw). INSTRUCTIONS Apply ice. Use crutches. Elevate affected areas above chest level. Wear stiff soled shoe until released. Do not work for three days. Rest. Do not smoke. Seek medical help to quit smoking. Warnings: Further evaluation is necessary. It is very important to follow up with a physician. CONTROLLED SUBSTANCE WARNINGS. GENERAL WARNINGS: Return or contact your physician immediately if your condition worsens or changes unexpectedly, if not improving as expected, or if other problems arise. Your Current Medications: CONTINUE TAKING THE FOLLOWING MEDICATIONS: Alb inhaler*. Naproxen Oral. Prescription Medications: Hydrocodone/APAP 5mg / 325mg: take 1-2 orally every 6 hours as needed for pain. Dispense ten (10). No refill. OTC Medications: Acetaminophen (available over the counter): take according to label instructions. Follow-up with: Phu Mayorga DPM, Podiatry, , [facility], [address] [place] [address], [address], [place] [address] Follow up in about two days. Follow-up with: Diego Joe MD, [facility], , [facility] [place] [address] Follow up in two days. ADDITIONAL INFORMATION Crutch Walking Crutch Adjustment Make sure the crutches you use are adjusted to fit you. When you stand, there should be room to fit 2-3 fingers between the top of the crutch and your armpit. Your elbow should be slightly bent when holding the hand shop lead. Crutch Walking: Place the crutches forward 12" in front of and 6" to the side of your feet. Lean your weight forward as you push down on the handgrips. Your weight should be on your hands and yourstrong leg, not your armpits . Let your body swing through, landing on the strong leg. Advance the crutches forward again. The crutch and the injured leg should move together. Going Up Steps: ("Up with the good") With both crutches on the same step as your feet, push down on the handgrips. Balancing with very light pressure on the weak leg, let your hands support your weight as you raise your strong leg onto the next higher step. Transfer all your weight to your strong leg (still bent) as you move the crutches up to the next step alongside the strong leg. With your weight evenly balanced on the two crutches and your strong leg, straighten your strong knee as you raise the weak leg up to the next step. Going Down Steps: ("Down with the bad") With both crutches on the same step as your feet, push down on the handgrips. With your weight evenly balanced on the two crutches and your strong leg, bend your strong knee as you lower the weak leg down to the next step. Let your strong leg support you (still bent) as you move the crutches down alongside the weak leg. Transfer your weight to your hands, balancing with very light pressure on the weak leg as you lower your strong leg alongside your weak leg. How To Quit Smoking Smoking is one of the hardest habits to break. About half of all those who have ever smoked have been able to quit, and most of those (about 70%) who still smoke want to quit. Here are some of the best ways to stop smoking. Keep Trying: It takes most smokers about 8 tries before they are finally able to fully quit. So, the more often you try and fail, the better your chance of quitting the next time! So, don't give up! Go Cold [place]: Most ex-smokers quit cold turkey. Trying to cut back gradually doesn't seem to work as well, perhaps because it continues the smoking habit. Also, it is possible to fool yourself by inhaling more while smoking fewer cigarettes. This results in the same amount of nicotine in your body! Get Support: Support programs can make an important difference, especially for the heavy smoker. These groups offer lectures, methods to change your behavior and peer support. Call the free national Quitline for more information. 625-KSIE-BMU (297-427-0750). Low-cost or free programs are offered by many hospitals, local chapters of the [place] [employer] (355-410-4458) and the [place] [employer] (048-706-6261). Support at home is important too. Non-smokers can help by offering praise and encouragement. If the smoker fails to quit, encourage them to try again! Ubza-Kin-Etszgsr Medicines: For those who can't quit on their own, Nicotine Replacement Therapy (NRT) may make quitting much easier. Certain aids such as the nicotine patch, gum and lozenge are available without a prescription. However, it is best to use these under the guidance of your doctor. The skin patch provides a steady supply of nicotine to the body. Nicotine gum and lozenge gives temporary bursts of low levels of nicotine. Both methods take the edge off the craving for cigarettes. WARNING: If you feel symptoms of nicotine overdose, such as nausea, vomiting, dizziness, weakness, or fast heartbeat, stop using these and see your doctor. Prescription Medicines: After evaluating your smoking patterns and prior attempts at quitting, your doctor may offer a prescription medicine such as bupropion (Zyban, Wellbutrin), varenicline (Chantix, Champix), a niocotine inhaler or nasal spray. Each has its unique advantage and side effects which your doctor can review with you. Health Benefits Of Quitting: The benefits of quitting start right away and keep improving the longer you go without smokin minutes: blood pressure and pulse return to normal 8 hours: oxygen levels return to normal 2 days: ability to smell and taste begins to improve as damaged nerves start to regrow 2-3 weeks: circulation and lung function improves 1-9 months: decreased cough, congestion and shortness of breath; less tired 1 year: risk of heart attack decreases by half 5 years: risk of lung cancer decreases by half; risk of stroke becomes the same as a non-smoker For information about how to quit smoking, visit the following links: National Cancer [place] , Clearing the Air, Quit Smoking Today - an online booklet. http://www.smokefree.gov/pubs/clearing_the_air.pdf Smokefree.gov http://smokefree.gov/ QuitNet http://www.quitnet.com/ Hydrocodone Bitartrate, Acetaminophen Oral tablet What is this medicine? ACETAMINOPHEN; HYDROCODONE (a set a LINDA marvin fen; amarilis droe KOE done) is a pain reliever. It is used to treat mild to moderate pain. How should I use this medicine? Take this medicine by mouth. Swallow it with a full glass of water. Follow the directions on the prescription label. If the medicine upsets your stomach, take the medicine with food or milk. Do not take more than you are told to take. Talk to your lens polisher regarding the use of this medicine in children. This medicine is not approved for use in children. What side effects may I notice from receiving this medicine? Side effects that you should report to your doctor or health career based intervention coordinator as soon as possible: allergic reactions like skin rash, itching or hives, swelling of the face, lips, or tongue breathing problems confusion feeling faint or lightheaded, falls stomach pain yellowing of the eyes or skin Side effects that usually do not require medical attention (report to your doctor or health career based intervention coordinator if they continue or are bothersome): nausea, vomiting stomach upset What may interact with this medicine? alcohol antihistamines isoniazid medicines for depression, anxiety, or psychotic disturbances medicines for sleep muscle relaxants naltrexone narcotic medicines (opiates) for pain phenobarbital ritonavir tramadol What if I miss a dose? If you miss a dose, take it as soon as you can. If it is almost time for your next dose, take only that dose. Do not take double or extra doses. Where should I keep my medicine? Keep out of the reach of children. This medicine can be abused. Keep your medicine in a safe place to protect it from theft. Do not share this medicine with anyone. Selling or giving away this medicine is dangerous and against the law. Store at room temperature between 15 and 30 degrees C (59 and 86 degrees F). Protect from light. Keep container tightly closed. Throw away any unused medicine after the expiration date. Discard unused medicine and used packaging carefully. Pets and children can be harmed if they find used or lost packages. What should I tell my health care provider before I take this medicine? They need to know if you have any of these conditions: brain tumor Crohn's disease, inflammatory bowel disease, or ulcerative colitis drink more than 3 alcohol-containing drinks per day drug abuse or addiction head injury heart or circulation problems kidney disease or problems going to the bathroom liver disease lung disease, asthma, or breathing problems an unusual or allergic reaction to acetaminophen, hydrocodone, other opioid analgesics, other medicines, foods, dyes, or preservatives or trying to get breast-feeding What should I watch for while using this medicine? Tell your doctor or health career based intervention coordinator if your pain does not go away, if it gets worse, or if you have new or a different type of pain. You may develop tolerance to the medicine. Tolerance means that you will need a higher dose of the medicine for pain relief. Tolerance is normal and is expected if you take the medicine for a long time. Do not suddenly stop taking your medicine because you may develop a severe reaction. Your body becomes used to the medicine. This does NOT mean you are addicted. Addiction is a behavior related to getting and using a drug for a non-medical reason. If you have pain, you have a medical reason to take pain medicine. Your doctor will tell you how much medicine to take. If your doctor wants you to stop the medicine, the dose will be slowly lowered over time to avoid any side effects. You may get drowsy or dizzy when you first start taking the medicine or change doses. Do not drive, use machinery, or do anything that may be dangerous until you know how the medicine affects you. Stand or sit up slowly. There are different types of narcotic medicines (opiates) for pain. If you take more than one type at the same time, you may have more side effects. Give your health care provider a list of all medicines you use. Your doctor will tell you how much medicine to take. Do not take more medicine than directed. Call emergency for help if you have problems breathing. The medicine will cause constipation. Try to have a bowel movement at least every 2 to 3 days. If you do not have a bowel movement for 3 days, call your doctor or health career based intervention coordinator. Too much acetaminophen can be very dangerous. Do not take Tylenol (acetaminophen) or medicines that contain acetaminophen with this medicine. Many non-prescription medicines contain acetaminophen. Always read the labels carefully. You have been given the following additional information: Crutch Walking Smoking Cessation Hydrocodone Bitartrate, Acetaminophen Oral tablet Do not work for three days. Rest. (Electronically signed by Alfonzo Sainz DO 02/18/2017 10:29)
== END 2017-02-18 09:55 | disposition home or self-care (01) ==
LOC: ED SRH 08:42
DX: T84.84XA Pain due to internal orthopedic prosthetic devices, implants and grafts, initial encounter (principal); M79.672 Pain in left foot; I10 Essential (primary) hypertension; K21.9 Gastro-esophageal reflux disease without esophagitis; Z79.1 Long term (current) use of non-steroidal anti-inflammatories (NSAID); Z79.899 Other long term (current) drug therapy